=== PATIENT | female | born 1995 | race Caucasian/White ===

== ENCOUNTER 2017-06-25 17:35 | Emergency (ER) | payer MEDICAID, OTHER ==
[2017-06-25 17:55] VITALS: BP 139/84
--- NOTE | 2017-06-25 18:09 | ED Physician Documentation ---
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 Severity: mild Duration: persistent since Context: incision Associated Symptoms: denies: tingling, numbness distally, feeling loss, loss of power to arms Modifying Factors: denies: pain on movement Further Comments: yes (no tet tox since small child but refuses tet tox) - ROS CONST: no problems CVS/RESP: none NEURO: none MS/SKIN/LYMPH: none GI/: denies: problems urinating, nausea, vomiting - PAST HX Past History: none Allergies/Adverse Reactions: Allergies Allergy/AdvReac Type Severity Reaction Status Date / Time No Known Allergies Allergy Verified 06/25/17 17:55 Home Medications: Ambulatory Orders Medication Instructions Recorded Sertraline HCl [Zoloft] 25 mg PO D 06/25/17 - SOCIAL HX Smoking History: non-smoker Alcohol Use: none Drug Use: none - FAMILY HX Family History: no significant history - VITAL SIGNS Vital Signs: Vital Signs Temp Pulse Resp BP Pulse Ox 88 16 139/84 100 06/25/17 17:36 06/25/17 17:36 06/25/17 17:36 06/25/17 17:36 - REVIEWED ASSESSMENTS Nursing Assessment Reviewed: Yes Vitals Reviewed: Yes Procedures Wound Location: upper extremity Wound's Depth, Shape: superficial, linear Wound Explored: no foreign body removed Betadine Prep?: Yes Wound Repaired With: Dermabond (1cm lac distal tip lt 4th finger) Sterile Dressing Applied?: Yes Upper Extremity Injury Physic - Physical Exam General Appearance: mild distress Hand: laceration (1cm lac distal tip lt 4th finger) Wrist: normal inspection Elbow/Forearm: normal inspection Shoulder: normal inspection Neuro/Vascular/Tendon: no vascular compromise, motor nml, sensation nml. No: abnml warmth, abnml cap refill, tendon injury, ROM limited by pain Skin: warm,dry. No: diaphoretic, cool, cyanotic Head/ENT: nml inspection Resp/CVS: chest non-tender, breath sounds nml, heart sounds nml, no resp. distress, lungs clear, reg. rate & rhythm Abdomen: non-tender Discharge Clincal Impression: 1cm lac distal tip lt 4th finger Referrals: Primary Doctor,No [Primary Care Provider] - 2 Days Comments: pt declines tet tox-but will take keflex has 3 boys must get hand wet-will wear rubber glove Condition: Good Disposition: 01 HOME, SELF-CARE Decision to Admit: NO Decision Time: 18:16
== END 2017-06-25 18:15 | disposition home or self-care (01) ==
LOC: ED 17:35
DX: S61.215A Laceration without foreign body of left ring finger without damage to nail, initial encounter (principal); W25.XXXA Contact with sharp glass, initial encounter; Y93.E9 Activity, other interior property and clothing maintenance; Y92.9 Unspecified place or not applicable; Y99.9 Unspecified external cause status
CPT/HCPCS: 12001; 99282

== ENCOUNTER 2018-01-11 13:55 | Emergency (ER) | payer MEDICAID, OTHER ==
--- NOTE | 2018-01-11 14:10 | ED Physician Documentation ---
Female Urogenital Problems - HISTORIAN Historian: patient - HPI Chief Complaint: Female Urogenital Problems Additional Information: Emily feels that she might have a UTI. Has had previous ones. Last UTI 5 years ago. Dysuria started this AM, urinary frequency nd urgency. Noted some blood in urine today. No fever or chills noted. LNMP was Nov 28. Patient has a positive test last week. No back pain noted. Onset: hours Severity: moderate - Vaginal Bleeding Where was Test Done: home Care: No Sexual History: active - Associated Symptoms Urinary Symptoms: blood in urine, frequent urination, discomfort w/ urination, burning w/ urination, urgency w/ urination Discharge: denies: vaginal discharge - ROS CONST: none. denies: fever, chills GI/: denies: nausea, vomiting - PAST HX Past History: none Other History: none Surgeries/Procedures: none Immunizations: referred to PCP Allergies/Adverse Reactions: Allergies Allergy/AdvReac Type Severity Reaction Status Date / Time No Known Allergies Allergy Verified 01/11/18 14:16 Home Medications: Ambulatory Orders Medication Instructions Recorded NK 01/11/18 Nitrofurantoin Monohyd/M-Cryst 100 mg PO BID #14 capsule 01/11/18 [Macrobid 100 mg Capsule] - SOCIAL HX Smoking History: non-smoker Alcohol Use: none Drug Use: none - FAMILY HX Family History: none - VITAL SIGNS Vital Signs: Vital Signs Temp Pulse Resp BP Pulse Ox 139/84 06/25/17 18:23 - REVIEWED ASSESSMENTS Nursing Assessment Reviewed: Yes Female Urogenital Problems - EXAM General Appearance: no acute distress, alert Neck: nml inspection Respiratory: no resp. distress, breath sounds nml, respiratory distress CVS: reg rate & rhythm, heart sounds normal, equal pulses, no murmur Abdomen: soft, non-tender, no organomegaly, no distention, nml bowel sounds, tenderness (suprapubic area) Neuro: oriented X3, mood/affect nml, cognition normal Discharge Clincal Impression: UTI (urinary tract infection) Qualifiers: Urinary tract infection type: acute cystitis Hematuria presence: with hematuria Qualified Code(s): N30.01 - Acute cystitis with hematuria Prescriptions: Nitrofurantoin Monohyd/M-Cryst [Macrobid 100 mg Capsule] 100 mg PO BID #14 capsule Referrals: Primary Doctor,No [Primary Care Provider] - 2 Days Additional Instructions: Drink a lot of fluids. Take Macrodantin twice a day for seven days. Watch for fever, chills, flank pain as we discussed. Have your urine rechecked in 10-15 days. Condition: Stable Disposition: 01 HOME, SELF-CARE Decision to Admit: NO Date of Decison to Admit: 01/11/18 Decision Time: 14:16
[2018-01-11 14:16] VITALS: BP 141/86
[2018-01-12 06:35] LABS: APPEARANCE,URINE CLOUDY (CLEAR); COLOR,URINE YELLOW (YELLOW); OCCULT BLOOD,URINE 3+ (NEGATIVE); UROBILINOGEN URINE 0.2 Eu (0.2-1.0)
== END 2018-01-11 14:30 | disposition home or self-care (01) ==
LOC: ED 13:55
DX: N30.01 Acute cystitis with hematuria (principal)
CPT/HCPCS: 81002; 81025; 87086; 87186; 99283